=== PATIENT | female | born 1975 | race Hispanic/Latino ===

== ENCOUNTER 2020-02-04 22:38 | Inpatient (IN) ==
--- NOTE | 2020-02-04 23:27 | PROVIDER DOCUMENTATION ---
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 Patient reports she has hx of heavy menstrual cycles, and started her cycle yesterday. Reports approximately 2 hours ago, she began feeling dizzy/weak, which brought her to the ED. States she is currently saturating 1 pad/hr. Patient reports years ago, she saw a doctor in [facility] who prescribed a medication for heavy periods, however patient is unsure of name. Denies fever, nausea/vomiting/diarrhea, dysuria, flu-like symptoms, or CP. Upon examination, patient appears non-toxic, however pale. Does patient report she is ?: No Location of complaint: reports: suprapubic, vaginal Radiation: reports: none Quality of Pain: reports: cramping Severity in ED: reports: mild Onset/Duration: reports: 24 hours ago Timing: reports: still present Context/Activities at Onset: reports: none Vaginal Symptoms: reports: abnormal bleeding (heavy), passing clots/tissue Vaginal Bleeding Amount: Large/Heavy Pads/Day: 20 Urinary Symptoms: reports: no symptoms. denies: dysuria, low back pain Modifying Factors: improves with: nothing Associated Symptoms: reports: dizziness, weakness (generalized). denies: back/neck pain, chest pain, fever/chills, nausea, vomiting Similar Symptoms Previously?: Yes Recently seen or treated by another doctor?: No - LMP/ History : 1 Para: 1 Review of Systems - Adult - REVIEW OF SYSTEMS - ADULT Constitutional: denies: chills, fever Eyes: reports: no symptoms reported Ears, Nose, Mouth & Throat: denies: sinus problem, throat pain Cardiovascular: denies: chest pain, palpitations, syncope Respiratory: denies: cough, shortness of breath, wheezing Gastrointestinal: reports: see HPI, abdominal pain. denies: diarrhea, nausea, vomiting Genitourinary: reports: see HPI, discharge. denies: dysuria, flank pain Musculoskeletal: reports: no symptoms reported Integumentary: reports: no symptoms reported Neurological: reports: see HPI, dizziness/vertigo. denies: headache/migraines, syncope Psychiatric: reports: no symptoms reported Endocrine: reports: no symptoms reported Past History - Adult - PAST MEDICAL HISTORY-ADULT Review of Records: reports: Nursing Assessment Review, Medications Reviewed, Social history reviewed & non-contributory. Obstetrical/Gynecological: reports: other (heavy menstrual cycles) - IMMUNIZATION STATUS Childhood Immunizations: See Nurse Assessment Flu Vaccine: See Nurse Assessment - FAMILY HISTORY Family History: reviewed, not pertinent - SOCIAL HISTORY Smoking: denies, non-smoker Physical Exam-General - PHYSICAL EXAM-ADULT Initial Vital Signs Reviewed: Yes - CONSTITUTIONAL General Appearance: alert, no apparent distress, thin. negative: lethargic, slow to respond, obtunded - EYES Eyes: PERRL/EOMI, pale conjunctivae - HEAD, EARS, NOSE, MOUTH & THROAT HENMT: normocephalic/atraumatic, moist mucous membranes, other (smooth, pale tongue). negative: angioedema - NECK Neck: full range of motion, supple, normal inspection - RESPIRATORY Respiratory: chest non-tender, lungs clear, normal breath sounds, no pleuratic chest pain, no respiratory distress, no accessory muscle use. negative: crackles, rales, rhonchi, stridor, wheezing, retractions, splinting - CARDIOVASCULAR Cardiovascular: regular rate, rhythm, no gallop - GASTROINTESTINAL (ABDOMEN) Abdominal Exam: normal bowel sounds, non tender, soft. negative: rigid, tenderness - MUSCULOSKELETAL Back Exam: normal inspection, no CVA tenderness Extremity: normal range of motion, non-tender, normal gait, normal inspection - SKIN Integumentary: warm/dry, pallor. negative: cyanosis, jaundice - NEUROLOGIC Neurologic: grossly normal. negative: aphasia, EOM palsy - PSYCHIATRIC Psych/Mental Status: normal mood/affect, normal thought content, normal thought process, oriented x 3 Progress - PLAN OF CARE/RESULTS Progress/Plan/Lab Results: Vital Signs - 8 hr 02/04/20 22:44 02/04/20 23:48 02/05/20 00:00 Temperature 97.9 F Pulse Rate 75 73 Pulse Rate [Sitting] 80 Pulse Rate [Standing] 79 Pulse Rate [Supine] 73 Respiratory Rate 18 19 Blood Pressure 113/62 100/47 Blood Pressure [Sitting] 100/51 Blood Pressure [Standing] 110/46 Blood Pressure [Supine] 105/48 O2 Sat by Pulse Oximetry 100 100 Bedside Urine ED: Urine Bedside Start: 02/04/20 22:57 Freq: ORDERED Status: Active Protocol: Activity Type Activity Date Activity User E-Sign Co-Sign Detail Recorded Client Recorded Date Recorded By Document 02/04/20 23:27 [id number] 02/04/20 23:27 [id number] 02/04/20 23:27 Point of Care [Bedside Point of Care] -Lot # [id number] - Results Negative -Control Line Visible? Yes ED: Urine Bedside Start: 02/04/20 22:57 Freq: ORDERED Status: Cancelled Protocol: Activity Type Activity Date Activity User E-Sign Co-Sign Detail Recorded Client Recorded Date Recorded By Edit Status 02/04/20 23:28 [id number] Active=>Cancelled [id number] 02/04/20 23:28 [id number] Laboratory Results - last 24 hr 02/04/20 02/04/20 02/04/20 00:13 23:00 23:22 WBC Cancelled RBC Cancelled Hgb Cancelled Hct Cancelled MCV Cancelled MCH Cancelled MCHC Cancelled RDW Std Deviation Cancelled Plt Count Cancelled MPV Cancelled Immature Gran % (Auto) Cancelled Neut % (Auto) Cancelled Lymph % (Auto) Cancelled [place] % (Auto) Cancelled Eos % (Auto) Cancelled Baso % (Auto) Cancelled Immature Gran # (Auto) Cancelled Neut # (Auto) Cancelled Lymph # (Auto) Cancelled [place] # (Auto) Cancelled Eos # (Auto) Cancelled Baso # (Auto) Cancelled Corrected WBC (Man) Cancelled Segmented Neutrophils Band Neutrophils Lymphocytes Monocytes Hypochromia Poikilocytosis Anisocytosis Microcytosis Macrocytosis Ovalocytes Sodium 132 L Potassium 3.6 Chloride 94 L Carbon Dioxide 23 L Anion Gap 15 BUN 6 L Creatinine 0.4 L Estimated GFR/1.73 m2 > 60 BUN/Creatinine Ratio 15 Glucose 102 Calculated Osmolality 262 Calcium 7.9 L Iron TIBC % Saturation Unsat Iron Binding Total Bilirubin 0.30 AST 16 ALT 7 L Alkaline Phosphatase 104 Total Protein 9.4 H Albumin 3.5 Globulin 6.0 Albumin/Globulin Ratio 1.0 Urine Source CLEAN CATCH Urine Color BROWN Urine Turbidity TURBID Urine pH 8.5 Ur Specific [place] 1.025 Urine Protein 600 A Ur Glucose (Stick) NEGATIVE Ur Ketones (Stick) NEGATIVE Urine Blood LARGE A Urine Nitrite NEGATIVE Urine Bilirubin NEGATIVE Urobilinogen Dipstick NORMAL Urine Leukocytes SMALL A Urine WBC (Auto) <10 Urine RBC (Auto) TNTC A U Epithel Cells (Auto) <10 Urine Bacteria (Auto) 1+ Urine Crystals NONE SEEN Small Round Cells NONE SEEN Urine Casts NONE SEEN Urine Yeast-like Cells NONE SEEN Blood Type Blood Type Confirm Antibody Screen Crossmatch 02/04/20 02/05/20 02/05/20 23:22 00:13 00:13 WBC 6.90 RBC 1.84 L Hgb 2.5 L* Hct 11.0 L MCV 59.8 L MCH 13.6 L MCHC 22.7 L RDW Std Deviation 21.4 H Plt Count 482 H MPV 8.7 Immature Gran % (Auto) 0.3 Neut % (Auto) 68.3 Lymph % (Auto) 21.0 [place] % (Auto) 8.0 Eos % (Auto) 2.0 Baso % (Auto) 0.4 Immature Gran # (Auto) 0.02 Neut # (Auto) 4.71 Lymph # (Auto) 1.45 [place] # (Auto) 0.55 Eos # (Auto) 0.14 Baso # (Auto) 0.03 Corrected WBC (Man) Segmented Neutrophils 66 Band Neutrophils 4 H Lymphocytes 28 Monocytes 2 Hypochromia 2+ Poikilocytosis OCCASIONAL Anisocytosis 1+ Microcytosis 1+ Macrocytosis OCCASIONAL Ovalocytes OCCASIONAL Sodium Potassium Chloride Carbon Dioxide Anion Gap BUN Creatinine Estimated GFR/1.73 m2 BUN/Creatinine Ratio Glucose Calculated Osmolality Calcium Iron 13 L TIBC 405 % Saturation 3 Unsat Iron Binding 392 H Total Bilirubin AST ALT Alkaline Phosphatase Total Protein Albumin Globulin Albumin/Globulin Ratio Urine Source Urine Color Urine Turbidity Urine pH Ur Specific [place] Urine Protein Ur Glucose (Stick) Ur Ketones (Stick) Urine Blood Urine Nitrite Urine Bilirubin Urobilinogen Dipstick Urine Leukocytes Urine WBC (Auto) Urine RBC (Auto) U Epithel Cells (Auto) Urine Bacteria (Auto) Urine Crystals Small Round Cells Urine Casts Urine Yeast-like Cells Blood Type O POSITIVE Blood Type Confirm Antibody Screen NEGATIVE Crossmatch See Detail 02/05/20 00:13 WBC RBC Hgb Hct MCV MCH MCHC RDW Std Deviation Plt Count MPV Immature Gran % (Auto) Neut % (Auto) Lymph % (Auto) [place] % (Auto) Eos % (Auto) Baso % (Auto) Immature Gran # (Auto) Neut # (Auto) Lymph # (Auto) [place] # (Auto) Eos # (Auto) Baso # (Auto) Corrected WBC (Man) Segmented Neutrophils Band Neutrophils Lymphocytes Monocytes Hypochromia Poikilocytosis Anisocytosis Microcytosis Macrocytosis Ovalocytes Sodium Potassium Chloride Carbon Dioxide Anion Gap BUN Creatinine Estimated GFR/1.73 m2 BUN/Creatinine Ratio Glucose Calculated Osmolality Calcium Iron TIBC % Saturation Unsat Iron Binding Total Bilirubin AST ALT Alkaline Phosphatase Total Protein Albumin Globulin Albumin/Globulin Ratio Urine Source Urine Color Urine Turbidity Urine pH Ur Specific [place] Urine Protein Ur Glucose (Stick) Ur Ketones (Stick) Urine Blood Urine Nitrite Urine Bilirubin Urobilinogen Dipstick Urine Leukocytes Urine WBC (Auto) Urine RBC (Auto) U Epithel Cells (Auto) Urine Bacteria (Auto) Urine Crystals Small Round Cells Urine Casts Urine Yeast-like Cells Blood Type Blood Type Confirm O POSITIVE Antibody Screen Crossmatch Orders Category Date Time Status Consent for Test/Procedure DIRECTED Care 02/05/20 00:32 Active ED: Orthostatic Vital Signs (E DIRECTED Care 02/04/20 22:59 Active ED: Urine Bedside ORDERED Care 02/04/20 22:57 Active Notify if DIRECTED Care 02/05/20 00:32 Active Transfuse .Give-Transfuse Care 02/05/20 00:45 Active CHEST-1 VIEW [RAD] Stat Exams 02/05/20 00:38 Taken CBC WITH DIFF [HEME] Routine Lab 02/05/20 00:13 Completed CMP [COMPREHENSIVE METABOLIC PANEL] [CHEM] Stat Lab 02/04/20 23:22 Completed FERRITIN Stat Lab 02/05/20 00:34 Received LRPC (RED CELLS) [BBK] Stat Lab 02/05/20 00:13 Results TYPE & SCREEN [BBK] Stat Lab 02/05/20 00:13 Results UIBC W TOTAL IRON [CHEM] Stat Lab 02/05/20 00:34 Completed URINALYSIS W/POSS RFLX CULT [URINALYSIS] Stat Lab 02/04/20 23:00 Completed URINE CULTURE [RM] Routine Lab 02/05/20 00:19 Ordered URINE MANUAL MICROSCOPIC [URINALYSIS] Stat Lab 02/04/20 23:00 Completed 0.9% Sodium Chloride Inj [Ns] 500 ml Med 02/05/20 00:32 Active IV 30 mls/hr EKG [EKG] Routine Ther 02/05/20 00:34 Ordered Transfer/Admit Order [TRANSFER] Routine Transfer 02/05/20 00:47 Ordered Lab results, plan of care, and need for blood transfusion/admission discussed with patient and family who agree with and verbalize understanding. Plan of care discussed and formulated in conjunction with Dr. Pleitez who also examined the patient. Result Diagrams: 02/05/20 00:13 02/04/20 23:22 - XRAY 1 XRAY Study: Chest Impression: Normal - CONSULTS/PCP/HOSPITALIST Notification #1 *Consult/PCP/Hospitalist*: Dr. Ladd, Hospitalist Time Discussed: 00:44 Reason/Comments: Anemia; menorrhagia Consult Disposition: Admit Departure - Departure Date of Disposition Decision: 02/05/20 Time of Disposition Decision: 00:45 DIAGNOSIS: Anemia Qualifiers: Anemia type: unspecified type Qualified Code(s): D64.9 - Anemia, unspecified Menorrhagia Qualifiers: Menorrahagia type: with regular cycle Qualified Code(s): N92.0 - Excessive and frequent menstruation with regular cycle Disposition: ADMITTED INPATIENT 09 Certified Medical Emergency: Emergent Condition: Stable - Critical Care Note This patient required my direct & personal management of CC.: No Attestation - Physician/ BERHANE Attestation Patient care was provided by Advanced Practice Provider:: Yes Advanced Practice Provider:: Zoe Flores Advanced Practice Provider documentation review:: The Mid-level provider documentation, treatment plan and medical decision making was reviewed by the physician who agrees with all treatment and medical decision making by the MLP. The physician spent face to face time with patient:: Yes (Maik) Advanced Practice Provider documentation review:: Supervising physician onsite and consulted in the evaluation and care of this patient. The physician did have a face to face encounter with the patient.
[2020-02-04 23:40] LABS: URINE SOURCE CLEAN CATCH
[2020-02-04 23:56] LABS: BILIRUBIN URINE NEGATIVE (NEGATIVE); BLOOD URINE LARGE (NEGATIVE); COLOR BROWN; GLUCOSE URINE NEGATIVE (NEGATIVE); KETONE URINE NEGATIVE (NEGATIVE); LEUKOCYTES URINE SMALL (NEGATIVE); NITRITE URINE NEGATIVE (NEGATIVE); PH URINE 8.5; PROTEIN URINE 600 mg/dL (NEGATIVE); SP GRAVITY URINE 1.025; TURBIDITY URINE TURBID (CLEAR); UROBILINOGEN URINE NORMAL (NORMAL)
[2020-02-05 00:14] LABS: UR EPITHELIAL CELLS <10 /HPF (<10); URINE RBC TNTC /HPF (<10)
[2020-02-05 00:15] LABS: AGAP 15; ALBUMIN 3.5 g/dL (3.5-5.0); ALKALINE PHOSPHATASE 104 U/L (32-104); BUN 6 mg/dL (8-22); CALCIUM 7.9 mg/dL (8.8-10.2); CHLORIDE 94 mmol/L (98-107); COSMO 262; CREATININE 0.4 mg/dL (0.5-0.9); ESTIMATED GFR > 60; GLUCOSE 102 mg/dL (70-104); GOT 16 U/L (10-30); GPT 7 U/L (10-36); POTASSIUM 3.6 mmol/L (3.5-5.1); SODIUM 132 mmol/L (136-145); TCO2 23 mmol/L (25-35); TOTAL PROTEIN 9.4 g/dL (6.3-8.3)
[2020-02-05 00:18] LABS: URINE CASTS NONE SEEN; URINE CRYSTALS NONE SEEN; URINE SMALL ROUND CELLS NONE SEEN; URINE YEAST NONE SEEN
[2020-02-05 00:32] LABS: BASO# 0.03 X1000 (0.0-0.2); BASO% 0.4 % (0.0-0.8); EOS# 0.14 X1000 (0.0-0.7); HEMOGLOBIN 2.5 g/dL (12.0-16.0); IMM GRAN# 0.02 X1000 (0.0-0.04); IMM GRAN% 0.3 % (0.0-0.5); LYMPH# 1.45 X1000 (1.2-3.4); MCH 13.6 PG (27-31); MCHC 22.7 g/dL (33-37); MCV 59.8 FL (81-99); MONO# 0.55 X1000 (0.11-0.59); MPV 8.7 FL (7.4-10.4); NEUT# 4.71 X1000 (1.4-6.5); NEUT% 68.3 % (42.2-75.2); PLT 482 X1000 (130-400); RDW 21.4 % (11.5-14.5)
[2020-02-05] MEDS ORDERED: NS 500 ML IV ONE ×3 (00:32→21:00)
[2020-02-05 00:37] LABS: URINE BACTERIA 1+ /HPF
[2020-02-05 00:38] LABS: URINE WBC <10 /HPF (<10)
[2020-02-05 01:20] LABS: IRON SATURATION 3 %; TIBC 405 ug/dL; TOTAL IRON 13 ug/dL (49-151); UNBOUND IRON 392 ug/dL (112-346)
[2020-02-05 01:23] LABS: BANDS 4 % (0-1); LYMPHS 28 % (21-51); MONO 2 % (1-9); SEGS 66 % (42-75)
[2020-02-05 01:26] LABS: ANISOCYTOSIS 1+; HYPOCHROM 2+; MICROCYTOSIS 1+; POIKILOCYTOSIS OCCASIONAL
[2020-02-05 01:28] LABS: OVALOCYTES OCCASIONAL
[2020-02-05 01:30] LABS: RBC 1.84 XMIL (4.2-5.4)
[2020-02-05] MEDS ORDERED: TYLENOL PO PRN ×2 (02:12→20:09)
[2020-02-05] MEDS ORDERED: NS 1,000 ML IV ONE (02:12)
--- NOTE | 2020-02-05 07:37 | Diag Imaging Result Doc PS360 ---
EXAM: CHEST-1 VIEW - 02/05/2020 HISTORY: Anemia TECHNIQUE: Portable chest COMPARISON: None. FINDINGS: Inspiration is mildly shallow. There is nonspecific mild elevation of the left hemidiaphragm. The lungs appear clear. There is no pleural effusion or pneumothorax identified. Heart size appears borderline enlarged. IMPRESSION: Borderline cardiomegaly. Mildly shallow inspiration. Electronically signed by Evangelista Hall 02/05/2020 7:35 AM
[2020-02-05] MEDS ORDERED: METHERGINE IV ONE (07:52)
[2020-02-05 09:46] LABS: BASO# 0.02 X1000 (0.0-0.2); BASO% 0.5 % (0.0-0.8); EOS# 0.17 X1000 (0.0-0.7); EOS% 4.4 % (0.0-10.0); HEMATOCRIT 19.3 % (37.0-47.0); IMM GRAN# 0.01 X1000 (0.0-0.04); IMM GRAN% 0.3 % (0.0-0.5); LYMPH# 1.15 X1000 (1.2-3.4); LYMPH% 29.7 % (20.5-51.1); MCH 18.5 PG (27-31); MCHC 27.5 g/dL (33-37); MCV 67.2 FL (81-99); MONO# 0.31 X1000 (0.11-0.59); MPV 8.8 FL (7.4-10.4); NEUT# 2.21 X1000 (1.4-6.5); NEUT% 57.1 % (42.2-75.2); PLT 480 X1000 (130-400); RBC 2.87 XMIL (4.2-5.4); RDW 26.8 % (11.5-14.5); WBC 3.87 X1000 (4.8-10.8)
[2020-02-05 09:48] LABS: HEMOGLOBIN 5.3 g/dL (12.0-16.0)
[2020-02-05 10:03] LABS: AGAP 14; BUN 4 mg/dL (8-22); CALCIUM 7.8 mg/dL (8.8-10.2); CHLORIDE 100 mmol/L (98-107); COSMO 269; CREATININE 0.4 mg/dL (0.5-0.9); ESTIMATED GFR > 60; GLUCOSE 102 mg/dL (70-104); POTASSIUM 3.9 mmol/L (3.5-5.1); SODIUM 136 mmol/L (136-145); TCO2 23 mmol/L (25-35)
--- NOTE | 2020-02-05 10:25 | Diag Imaging Result Doc PS360 ---
EXAM: US PELVIC NON-OB COMPLETE - 02/05/2020 HISTORY: Menorrhagia; anemia TECHNIQUE: Ultrasound pelvis. Exam performed using transabdominal probe. COMPARISON: None. FINDINGS: The uterus measures 11.1 x 6.6 x 5.7 cm in size. There is a 5.4 x 3.5 x 2.4 cm oval relatively isoechoic lesion at the central uterus. It is not clear if this represents an endometrial lesion, or a myometrial fibroid which displaces the endometrium posteriorly. There is an apparent 3.7 cm in maximum dimension fibroid at the superior uterine fundus. The right ovary measures 4.4 x 4 x 3 cm in size. The left ovary measures 3.7 x 3.4 x 2.7 cm in size. The bilateral ovaries demonstrate blood flow signal on Doppler images. There is a 3.2 cm right ovarian cyst. There is a 1.5 cm left ovarian cyst. There is no other adnexal mass identified. There is no free fluid identified. IMPRESSION: 5.4 x 3.5 x 2.4 cm oval relatively isoechoic lesion in central uterus. It is not clear if this represents an endometrial lesion, or a myometrial fibroid which displaces the endometrium posteriorly. Apparent 3.7 cm fibroid at superior fundus. 3.2 cm right ovarian cyst. 1.5 cm left ovarian cyst. Electronically signed by Evangelista Hall 02/05/2020 10:23 AM
[2020-02-05 13:13] LABS: HEMATOCRIT 23.8 % (37.0-47.0); HEMOGLOBIN 6.7 g/dL (12.0-16.0)
[2020-02-05] MEDS: METHERGINE PO SCH ×2 (13:55→23:30)
--- NOTE | 2020-02-05 15:58 | HISTORY AND PHYSICAL ---
CHIEF COMPLAINT: Abdominal pain, heavy vaginal bleeding. HISTORY OF PRESENT ILLNESS: Ms. Hardy is a 44-year-old Burkinan female who speaks the dialect Kankiranbal, spoke with parts interpreter Bob [id number]. Most medical information was obtained from him as well as the ED record from their language line parts interpreter [id number]. The patient came to the ED complaining of heavy periods and cramping with dizziness. She also reported heavy menstrual cycles back in [facility] for which for which she was given medication for her heavy menstrual periods. However, she was unsure of the name. There was no nausea, vomiting, diarrhea, dysuria, flu-like symptoms or chest pain. Workup in the ED revealed a H H at 2 and 11. She was typed and screened for 5 unit. She has currently received 3 units of PRBCs. H H after 3 has gone up to 6. Her hemoglobin is 23. Initial lactate was 1.3. She has had a pelvic ultrasound that shows a 5.4 x 3.5 x 2.4 cm oval relatively isoechoic lesion in the central uterus, not clear if it represents an endometrial lesion or myometrial fibroid which displaces the endometrium posteriorly and a 3.7 cm fibroid at the superior findings, 3.2 cm right ovarian cyst and 1.5 cm left ovarian cyst. The patient is felt to be stable for transfer to [facility] for OB consult. We did speak with Dr. Laurie Hill on the phone this a.m. Her recommendation was to give IV Methergine and then start her on p.o. 4 times a day and continue with the transfusions. The patient reports that she is feeling better after her 3 units of blood and her weakness has improved. No more dizziness, and she will be transferred to [facility] for OB evaluation. PAST MEDICAL HISTORY: Heavy menstrual cycles. SOCIAL HISTORY: Nonsmoker. Originally from [facility]. Speaks [place]. She did have a male family member at bedside earlier. However, he is no longer present. REVIEW OF SYSTEMS: Obtained through language line as well as ED documentation. Again hard to obtain somewhat secondary to language barrier, except for those mentioned in HPI. She was saturating 1 pad per hour. PHYSICAL EXAMINATION: VITAL SIGNS: Temperature is 98.6 degrees, heart rate 67, respirations 16, blood pressure was initially 97/41, O2 was 100% on room air. She is currently blood pressure 109/51, 100 percent on room air. GENERAL: Ms. Hardy is a 44-year-old Burkinan female who is sitting up in the bed, in no acute distress. HEENT: Atraumatic, normocephalic. PERRL. NECK: Supple, trachea midline. CARDIOVASCULAR: S1, S2 appreciated. No murmurs, gallops, rubs noted. RESPIRATORY: Lung sounds clear bilaterally. GI: Soft. Tender to palpation. It appears to be tender in all 4 quadrants, especially in the suprapubic area. NEUROLOGIC: No focal deficits noted. LABORATORY DATA: White count 3, initial H H was 2 and 11, currently 6 and 23. Chemistry: Sodium was 132, potassium 3.6, BUN was 6, creatinine 0.6, blood glucose was 102. Pelvic ultrasound per HPI. Chest x-ray showed borderline cardiomegaly and shallow inspiration. ASSESSMENT/PLAN: 1. Menorrhea with severe anemia. The patient was typed and screened for 5 units. She has currently received 3. H H went from 2 and 11 to 6 and 23. She was given IV Methergine and started on p.o. 4 times a day. She has underwent her pelvic ultrasound and will transfer to [facility] for OB specialty. 2. Severe anemia secondary to number 1. She has been typed and screened for 5 units. She has been given 3. We feel she is now stable for transfer to [facility] to follow up with OB. 3. Language barrier. Patient speaks Burkinan with a dialect of [place]. 4. Further recommendation to follow physician evaluation, laboratory and diagnostic data. Dictated by SEVERO Funes for Pavel Bautista MD cc: Pavel Bautista MD
--- NOTE | 2020-02-06 | HISTORY AND PHYSICAL ---
ADDENDUM: Patient presented to the hospital with a significant anemia with an hemoglobin and hematocrit of 2.5 and 11. She has heavy menstrual periods, saturating up to a pad an hour. Blood pressures actually were initially low at 95/45, currently improved to 114/80. We did consult with GUILLOTINE TRIMMER via the phone, who recommended Methergine, IV initially and then p.o. Her bleeding appears to have improved. Her hemoglobin and hematocrit is significantly improved after 3 units, currently is at 6 and 23. We are going to transfuse 2 more units and will transfer her to [facility] [place] to be cared for by GUILLOTINE TRIMMER. cc: Pavel Bautista MD
[2020-02-06] MEDS: METHERGINE PO SCH ×5 (02:00→21:01)
[2020-02-06 08:17] LABS: HEMATOCRIT 29.6 % (37.0-47.0); HEMOGLOBIN 8.8 g/dL (12.0-16.0); MCHC 29.7 g/dL (33-37); MPV 9.3 FL (7.4-10.4); RDW 24.5 % (11.5-14.5); WBC 4.26 X1000 (4.8-10.8)
[2020-02-06 08:26] LABS: AGAP 12; ALB/GLOB RATIO 0.5; ALBUMIN 2.9 g/dL (3.5-5.0); ALKALINE PHOSPHATASE 95 U/L (32-104); BUN 7 mg/dL (8-22); CALCIUM 7.6 mg/dL (8.8-10.2); CHLORIDE 107 mmol/L (98-107); COSMO 275; CREATININE 0.5 mg/dL (0.5-0.9); ESTIMATED GFR > 60; GLUCOSE 94 mg/dL (70-104); GOT 11 U/L (10-30); GPT 5 U/L (10-36); MAGNESIUM 2.2 mg/dL (1.5-2.7); POTASSIUM 3.9 mmol/L (3.5-5.1); SODIUM 139 mmol/L (136-145); TCO2 20 mmol/L (25-35); TOTAL BILIRUBIN 0.36 mg/dL (0.20-1.00); TOTAL PROTEIN 8.6 g/dL (6.3-8.3)
--- NOTE | 2020-02-06 10:26 | PROGRESS NOTE ---
DATE: 02/06/2020 SUBJECTIVE: The patient reports feeling fine now, less weakness. Continues to have a small amount of bleeding. OBJECTIVE: Vital Signs: Temperature 97.7 degrees, heart rate 52, respiratory rate 18, blood pressure 104/57, O2 saturation 100% on room air. General Examination: A 44-year-old female, lying in bed, in no acute distress. Cardiovascular: S1, S2 heard. No murmurs, gallops, or rubs. Regular rate and rhythm. Respiratory: Clear bilaterally to auscultation. No work of breathing. Not using accessory muscles. Abdomen: Soft, nontender to palpation all over mostly in the suprapubic area. There are no signs of peritoneal irritation. Parkinson's negative. Neurological: Patient is alert and oriented x3. Moves 4 extremities. LABORATORY DATA: White cell count 4.26, hemoglobin 8.8, hematocrit 29.6, platelets 392,000 with BMP that is normal and iron studies that shows very low iron with 13 with ferritin 0.36. ASSESSMENT AND PLAN: 1. Menorrhagia with severe anemia. Patient seen in the emergency department because of bleeding. Actually she reports that she has been bleeding for at least 1 year to 2 years intermittently but the bleeding continuously. So far she has received 5 units of blood and hemoglobin now is 8.8. The ultrasound revealed 5.4 x 3.5 x 2.4 oval relatively isoechoic lesion in the center uterus but it is not clear if that represents endometrial lesion or myometrial fibroid which displaces the endometrium posteriorly. There is a 3.7 cm fibroid at this superior fundus. At this point, we are awaiting CONFIGURATION MANAGEMENT ADVISOR consult. 2. Anemia secondary to condition #1, much better with hemoglobin 8.5. We will continue to monitor. cc: Juan Real MD [facility]PITAL CENTERBrittani
--- NOTE | 2020-02-06 17:53 | CONSULTATION ---
DATE OF CONSULTATION: 02/06/2020 HISTORY OF PRESENT ILLNESS: The patient is a 44-year-old Ugandan female, G1, P1, who is here today after having heavy bleeding at home. Upon evaluation in the emergency room, patient noted to be severely anemic. Patient was then admitted for transfusion and we were consulted concerning her bleeding. PAST MEDICAL HISTORY: Unremarkable. PAST OB HISTORY: G1, P1, x1. PAST SURGICAL HISTORY: as noted above. MEDIA DEVELOPER HISTORY: Difficult to obtain, but found that this is not a usual occurrence for this patient. REVIEW OF SYSTEMS: All systems reviewed and noncontributory. FAMILY HISTORY: Also unremarkable. SOCIAL HISTORY: Tobacco use, none. Alcohol use, none. MEDICATIONS: None. ALLERGIES: No known drug allergies. PHYSICAL EXAMINATION: Vital Signs: Height height 4 feet 9 inches, weight 98 pounds. Temperature 98.0 degrees, blood pressure 105/42, pulse of 61, respirations 18. HEENT: Pupils equal, round, reactive to light and accommodation. Extraocular movements intact. Oropharynx clear. Neck: Supple. No thyromegaly. Lungs: Clear to auscultation. Heart: Regular rate and rhythm. Abdomen: Bowel sounds positive. Soft, nontender. No masses palpated. : The patient on examination of the perineum did not have much bleeding and throughout most of the day has been seemingly controlled. Extremities: No clubbing, cyanosis, or edema noted. Neurologic: Cranial nerves 2-12 grossly intact. Motor 5/5. LABORATORY STUDIES: The patient initially came in with severe anemia, was transfused, and repeat hemoglobin is elevated to 8.8 and hematocrit is 29.6, platelet count 392,000. Ultrasound had shown normal-sized uterus with some, what appeared to be fluid or clot inside the uterus and there was also a fibroid noted at the fundus. Ovaries were normal with some small cysts present. ASSESSMENT AND PLAN: This is a 44-year-old Ugandan female G1, P1 with menorrhagia. The patient appears to have slowed down her bleeding. Presently, she is on Methergine and IV fluids. She, as mentioned above, has stopped bleeding. Would recommend rechecking a CBC in the morning and monitor her bleeding over night. cc: Nasim Claros III, MD
[2020-02-07] MEDS: METHERGINE PO SCH ×2 (02:49→08:36)
[2020-02-07 07:39] VITALS: BP 91/47
[2020-02-07 07:40] LABS: BASO# 0.02 X1000 (0.0-0.2); BASO% 0.4 % (0.0-0.8); EOS# 0.35 X1000 (0.0-0.7); EOS% 7.3 % (0.0-10.0); HEMATOCRIT 28.9 % (37.0-47.0); HEMOGLOBIN 8.6 g/dL (12.0-16.0); LYMPH# 1.14 X1000 (1.2-3.4); LYMPH% 23.8 % (20.5-51.1); MCH 22.3 PG (27-31); MCHC 29.8 g/dL (33-37); MCV 74.9 FL (81-99); MONO# 0.44 X1000 (0.11-0.59); MONO% 9.2 % (1.7-9.3); MPV 9.4 FL (7.4-10.4); NEUT# 2.85 X1000 (1.4-6.5); NEUT% 59.3 % (42.2-75.2); PLT 425 X1000 (130-400); RBC 3.86 XMIL (4.2-5.4); RDW 25.9 % (11.5-14.5)
[2020-02-07 08:07] LABS: BANDS 4 % (0-1); EOS 4 % (1-10); LARGE PLATELETS 3+; LYMPHS 26 % (21-51); MONO 4 % (1-9); NRBC 3 % (0-0); SEGS 62 % (42-75)
[2020-02-07 08:08] LABS: ANISOCYTOSIS 1+; MICROCYTOSIS 2+
--- NOTE | 2020-02-07 12:24 | DISCHARGE SUMMARY ---
ADMISSION DATE: 02/05/2020 DISCHARGE DATE: 02/07/2020 PRIMARY CARE PROVIDER: None. PERTINENT PROCEDURES: Pelvic ultrasound 5.4 x 3.5 x 2.4 cm relatively isoechoic lesion in the central uterus, not clear if this represents an endometrial lesion or a myometrial fibroid which displaces the endometrium posteriorly. Apparent 3.7 cm fibroid at superior fundus, 3.2 cm right ovarian cyst, and 1.5 cm left ovarian cyst. CONSULTATIONS: Dr. Claros. DISCHARGE DIAGNOSES: 1. Menorrhea with severe anemia. The patient was typed and screened and given a total of 5 units of PRBC's. The hemoglobin and hematocrit is currently 8 and 28. Initial hemoglobin and hematocrit was 2 and 11. She was hemodynamically stable. She was given a dose of IV Methergine and started on p.o. her PROFILING MACHINE OPERATOR's recommendations and transferred to [facility]. Her bleeding has slowed down. Her hemoglobin and hematocrit was monitored 1 more night as well as her bleeding, and she will be discharged back home to followup with PROFILING MACHINE OPERATOR. 1. Severe anemia secondary to #1. 2. Language barrier. Patient speaks [place] with Dialect of [employer] HOSPITAL COURSE: Briefly, Ms. Hardy is a 44-year-old, [place] female who speaks [place]. She came to the ED at [place] complaining of heavy periods, cramping and dizziness. She also had heavy menstrual cycles back in [facility] for which she was given an unknown medication for. She had a pelvic ultrasound that did show some cysts and uterine fibroids, and a possible lesion. Her hemoglobin and hematocrit was found to be 2 and 11. She was transfused with a total of 5 units. She was hemodynamically stable throughout her entire visit. We did speak with Dr. Snow Guerra on the phone who recommended to give IV Methergine and then placed on p.o. 4 times a day, and to continue with her transfusions. She was moved over to [facility] for PROFILING MACHINE OPERATOR consult, and she will be discharged back home today. VITAL SIGNS: Temperature 98.4 degrees, heart rate 48, respiratory 16, blood pressure 91/47, and O2 is 100% on room air. DISCHARGE DIET: Regular. DISCHARGE MEDICATIONS: 1. Icar C 1 tab p.o. b.i.d. 2. Methergine 0.2 mg p.o. q.6 hours for 3 more days. FOLLOWUP: Ms. Hardy is being discharged back home with self care. She is follow up with an PROFILING MACHINE OPERATOR. She can return to the ED or call 911 for any worsening of symptoms. Dictated by SEVERO Funes for Juan Real MD Addendum: Patient seen and examined by myself. Agree with SEVERO note. It reflects my assessment and plan. Patient is being discharged in stable condition. Will be seen by OB-PRODUCT PLANNER in a week. cc: Juan Real MD MTDD
== END 2020-02-07 14:05 | disposition home or self-care (01) | DRG 812 ==
LOC: P.ED 22:38 → P.MEDSURG 02-05 01:58 → SUATTDRO 02-05 01:58 → 3N 02-05 20:05
PROVIDERS: ATTEND Internal Medicine